=== PATIENT | female | born 1985 | race Caucasian/White ===

== ENCOUNTER → 2019-10-02 13:08 | Outpatient (CLI) | payer OTHER, SELFPAY ==
[2019-10-02 09:03] VITALS: BMI 30.8
[2019-10-02 14:13] LABS: Amphetamine Urine VISTA NEGATIVE (<1000 ng/mL); Barbiturate Urine VISTA NEGATIVE (< 200 ng/mL); Benzodiazepine Urine VISTA NEGATIVE (< 200 ng/mL); Cocaine Urine VISTA NEGATIVE (< 300 ng/mL); Ecstacy Urine VISTA NEGATIVE (< 500 ng/mL); Methadone Urine VISTA NEGATIVE (< 300 ng/mL); PCP Urine VISTA NEGATIVE (< 25 ng/mL); THC Urine VISTA NEGATIVE (< 50 ng/mL); Vista UDS pH Range 6
[2019-10-02 15:46] LABS: Chlamydia Trachomatis by PCR Negative (Negative); Neisserai gonorrhoeae by PCR Negative (Negative); Probe Check PASS; Sample Adequacy Control PASS; Specimen Processing Control PASS
[2019-10-04 03:41] LABS: HPV APTIMA, High Risk Negative (Negative)
== END ==
PROVIDERS: Visit Provider Obstetrics & Gynecology
DX: Z34.90 Encounter for supervision of normal pregnancy, unspecified, unspecified trimester (principal); Z12.4 Encounter for screening for malignant neoplasm of cervix
CPT/HCPCS: 80307; 87086; 87491; 87591; 87624; 88175; G0145

== ENCOUNTER → 2019-11-01 11:11 | Outpatient (CLI) | payer OTHER, SELFPAY ==
[2019-11-01 10:48] VITALS: BMI 30.8
[2019-11-01 11:29] LABS: Absolute Lymphocyte Count 1.51 X10^3/uL (0.83-4.51); Absolute Neutrophil Count 6.2 X10^3/uL (2.0-7.7); Basophil# 0.01 X10^3/uL; Basophil% 0.1 % (0-1); Eosinophil# 0.07 X10^3/uL; Eosinophils% 0.8 % (0-5); Hemoglobin 12.7 g/dL (12.0-15.0); Lymphocyte # 1.51 X10^3/ul (4.0); Lymphocyte % 18.3 % (19-41); Mean Corp Hgb Conc 34.3 g/dL (32-36); Mean Corpuscular Hgb 30.6 pg (27.0-32.0); Mean Corpuscular Volume 89.2 fL (81-99); Mean Platelet Vol. 9.1 fl (6.2-12.0); Monocyte# 0.47 X10^3/uL; Monocyte% 5.7 % (0-10); NRBC Flagged by Analyzer 0 % (0-5); Neutrophil # 6.16 X10^3/uL (2.7-7.7); Neutrophil % 74.7 % (47-70); Platelet Count 180 K/mm3 (150-450); RBC Distribution Width CV 12.5 % (11.6-14.6); RBC Distribution Width SD 40.1 fl (35.1-43.9); Red Blood Count 4.15 M/mm3 (4.2-5.4); White Blood Count 8.3 K/mm3 (4.4-11.0)
[2019-11-01 12:33] LABS: HIV - WCH Non-Reactive (Nonreactive); Hepatitis B Surface Antigen Non-Reactive (Nonreactive); Hepatitis C Antibody Non-Reactive (Nonreactive); Rubella IgG > 500.0 IU/mL
[2019-11-01 13:56] LABS: NATERA MAILED SPECIMEN
[2019-11-07 02:00] LABS: Rapid Plasmin Reagin (RPR) NONREACTIVE (NONREACTIVE)
== END ==
PROVIDERS: Referring Provider Obstetrics & Gynecology; Visit Provider Obstetrics & Gynecology
DX: Z34.81 Encounter for supervision of other normal pregnancy, first trimester (principal)
CPT/HCPCS: 36415; 85025; 86592; 86703; 86762; 86803; 86850; 86900; 86901; 87340

== ENCOUNTER → 2020-02-06 08:58 | Outpatient (CLI) | payer OTHER, SELFPAY ==
[2020-01-24 08:38] VITALS: BMI 30.8
[2020-02-06 09:24] LABS: Absolute Lymphocyte Count 1.16 X10^3/uL (0.83-4.51); Absolute Neutrophil Count 7.4 X10^3/uL (2.0-7.7); Basophil# 0.02 X10^3/uL; Basophil% 0.2 % (0-1); Eosinophil# 0.07 X10^3/uL; Eosinophils% 0.8 % (0-5); Hematocrit 36.5 % (37-47); Hemoglobin 12.1 g/dL (12.0-15.0); Lymphocyte # 1.16 X10^3/ul (4.0); Lymphocyte % 12.6 % (19-41); Mean Corp Hgb Conc 33.2 g/dL (32-36); Mean Corpuscular Hgb 31.1 pg (27.0-32.0); Mean Corpuscular Volume 93.8 fL (81-99); Mean Platelet Vol. 9.9 fl (6.2-12.0); Monocyte# 0.49 X10^3/uL; Monocyte% 5.3 % (0-10); NRBC Flagged by Analyzer 0 % (0-5); Neutrophil # 7.39 X10^3/uL (2.7-7.7); Neutrophil % 80.7 % (47-70); Platelet Count 197 K/mm3 (150-450); RBC Distribution Width CV 12.5 % (11.6-14.6); RBC Distribution Width SD 42.7 fl (35.1-43.9); Red Blood Count 3.89 M/mm3 (4.2-5.4); White Blood Count 9.2 K/mm3 (4.4-11.0)
[2020-02-06 09:28] LABS: Glucose Challenge Gest 1H 50g 137 mg/dL (70-140)
== END ==
PROVIDERS: Referring Provider Obstetrics & Gynecology; Visit Provider Obstetrics & Gynecology
DX: Z34.90 Encounter for supervision of normal pregnancy, unspecified, unspecified trimester (principal); Z13.1 Encounter for screening for diabetes mellitus
CPT/HCPCS: 36415; 82950; 85025

== ENCOUNTER → 2020-02-13 09:54 | Outpatient (CLI) | payer OTHER, SELFPAY ==
[2020-02-06 09:37] VITALS: BMI 31.1
[2020-02-13 11:18] LABS: Glucose GTT-Gestation. Fasting 76 mg/dL (<105)
[2020-02-13 11:57] LABS: Glucose GTT-Gestational 1 Hr 153 mg/dL (<190)
[2020-02-13 13:31] LABS: Glucose GTT-Gestational 2 Hr 157 mg/dL (<165)
[2020-02-13 14:21] LABS: Glucose GTT-Gestational 3 Hr 54 L (<145)
== END ==
PROVIDERS: Referring Provider Obstetrics & Gynecology; Visit Provider Obstetrics & Gynecology
DX: O99.810 Abnormal glucose complicating pregnancy (principal); Z3A.00 Weeks of gestation of pregnancy not specified
CPT/HCPCS: 36415; 82951; 82952

== ENCOUNTER → 2020-04-15 | Outpatient (CLI) | payer OTHER, SELFPAY ==
[2020-04-15 09:10] VITALS: BMI 34.0
== END | disposition home or self-care (01) ==
LOC: LABSPEC 12:16
PROVIDERS: Visit Provider Obstetrics & Gynecology
DX: Z34.90 Encounter for supervision of normal pregnancy, unspecified, unspecified trimester (principal)
CPT/HCPCS: 87081

== ENCOUNTER → 2020-04-28 | Outpatient (CLI) | payer OTHER, SELFPAY ==
[2020-04-15 09:10] VITALS: BMI 34.0
[2020-04-22 13:29] VITALS: BMI 33.9
== END | disposition home or self-care (01) ==
LOC: LABSPEC 10:10
PROVIDERS: Referring Provider Obstetrics & Gynecology; Visit Provider Obstetrics & Gynecology
DX: Z34.90 Encounter for supervision of normal pregnancy, unspecified, unspecified trimester (principal)
CPT/HCPCS: 87635; C9803; U0003

== ENCOUNTER 2020-05-11 04:59 | Inpatient (IN) | payer OTHER, SELFPAY ==
[2020-05-06 11:50] VITALS: BMI 35.2
[2020-05-11] VITALS (53 sets, daily range): BP systolic 101–150; BP diastolic 56–101; PULSE 70–109; RESP 16; TEMP 36.4–37.5; O2SAT 83–100; BMI 34.3
[2020-05-11 05:03] LABS: ROM Internal Control Test YES-OK TO RESULT pt. (Internal QC); ROM Patient Test POSITIVE (Negative)
[2020-05-11] MEDS: Lactated Ringers 1,000 ML 50 ML IV (05:20)
[2020-05-11 05:44] LABS: Absolute Lymphocyte Count 1.67 X10^3/uL (0.83-4.51); Absolute Neutrophil Count 8.9 X10^3/uL (2.0-7.7); Basophil# 0.03 X10^3/uL; Basophil% 0.3 % (0-1); Eosinophil# 0.07 X10^3/uL; Eosinophils% 0.6 % (0-5); Hematocrit 38.8 % (37-47); Hemoglobin 13.3 g/dL (12.0-15.0); Lymphocyte # 1.67 X10^3/ul (4.0); Lymphocyte % 14.5 % (19-41); Mean Corp Hgb Conc 34.3 g/dL (32-36); Mean Corpuscular Hgb 31.7 pg (27.0-32.0); Mean Corpuscular Volume 92.4 fL (81-99); Mean Platelet Vol. 10.1 fl (6.2-12.0); Monocyte# 0.83 X10^3/uL; Monocyte% 7.2 % (0-10); NRBC Flagged by Analyzer 0 % (0-5); Neutrophil # 8.88 X10^3/uL (2.7-7.7); Neutrophil % 77.1 % (47-70); Platelet Count 166 K/mm3 (150-450); RBC Distribution Width CV 13.9 % (11.6-14.6); RBC Distribution Width SD 45.1 fl (35.1-43.9); White Blood Count 11.5 K/mm3 (4.4-11.0)
--- NOTE | 2020-05-11 07:56 | HP.PCM_ITS ---
- Problem List (1) 35 weeks gestation of Status: Acute Comment: electronic covid test ordered 04/01/2020sc (scheduled for 05/06/2020 at 0955) (2) Abnormal glucose affecting Status: Acute Comment: Passed 3h GTT (05/18 abnormal) (3) Lab test negative for COVID-19 virus Status: Acute Comment: Negative 04/28 (4) Status: Acute Qualifiers: Comment: Will get flu shot at work NIPT- low risk female. declines carrier and NTD screening. anatomy shows bilateral choroid plexus cysts, otherwise normal (5) Supervision of normal Status: Acute Comment: PRR LEXUS 05/06/2020 girl Spouse: Fer History and Physical Date of Admission: 05/11/20 Intake Vital Signs 05/06/20 Height 5 ft 10 in 05/06/20 Weight: 245 lb 05/06/20 BP 128/78 H Intake Visit Reasons: 40WK OB Director Of Business Services Required: No Is patient in pain?: No Allergies No Known Allergies Allergy (Verified 05/06/20 11:50) Medications multivitamin no.47-iron fum 27 mg-folate no.1 1 mg-dha 300 mg capsule cap PO 10/02/19 [History Confirmed 05/06/20] Last Menstral Period: 07/31/19 Zika: Zika virus screening: Negative : No PFSH PFSH Medical History No significant past medical history (Acute) Surgical History H/O wisdom tooth extraction (Resolved) History of tonsillectomy (Resolved) Family History Grandmother Diabetes Mother Breast cancer Social History (Updated 05/06/20 @ 12:[address] 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 OB Visit LEXUS Calculator Estimated Delivery Date Method Current WG Current Estimate 05/06/20 LMP (Certain) 40w 0d Expected Delivery Route/Plan Labor Preferences- CB/BF classes: likely not going to be able to due to scheduling conflicts labor support person: Fer labor intervention preferences: open to all interventions pain management options preferred: desires natural labor but open to epidural cut cord/dad catch: cord : yes PP control planned: declines discussed possible routes of delivery and associated risks: discussed possible delivery modalities and possible indications for each including R/B/A of , VAVD, FAVD, and CS. questions answered. special requests: none Specific Issue/Plans flu vaccine: will receive through work tdap vaccine: 02/16 given rhogam: neg LARC form signed:02/16 declined movement and labor precautions reviewed. Problem list reviewed and updated with the most current plan of care details and appropriate orders placed. Relevant counseling for the gestational age provided. Continue routine care and follow up unless otherwise noted in visit notes/problem list details Initial Weight: 215 lb Date EGA Weight BP Urine Prot Glucose FHR FuHt Pres Dilation Effaced St Visit Note 11/01/19 13w 2d 208 lb (-7 lb) 132/88 Negative Negative 160 SM- no vb lof good fm no regular ctx SM- no vb crampingstill nauseated declines meds. desires NIPT screening. 11/29/19 17w 2d 209 lb (-6 lb) 124/88 Negative Negative 150 Sm- no vb cramping classes encouraged 12/26/19 21w 1d 216 lb (+16 oz) 130/80 Negative Negative 145 21 Sm- no vb lof good fm no regular ctx discussed anatomy scan findings. 01/24/20 25w 2d 214 lb 4 oz (-12 oz) 120/82 Negative Negative 150 25 GP - no LOF, VB, DFM. Doing well. Glucola next visit. Will get flu through work. GP - no LOF, VB, DFM. Doing well. Glucola next visit. Will get flu through work. Considering Guardado as name. 02/06/20 27w 1d 217 lb 8 oz (+2 lb 8 oz) 124/82 Negative Negative 145 27 GP - no LOF, VB, DFM, ctx. GTT 137 - plan for 3h. GP - no LOF, VB, DFM, ctx. GTT 137 - plan for 3h. Discussed TDAP - undecided. 02/17/20 28w 5d 221 lb (+6 lb) 110/82 Negative Negative 140 29 SM- no vb lof good fm no regular ctx larc signed 03/05/20 31w 1d 224 lb 6 oz (+9 lb 6 oz) Negative Negative 130 31 GP- no LOF, VB, DFM, ctx. Discussed labor preferences. 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 03/18/20 33w 0d 227 lb 4 oz (+12 lb 4 oz) 118/92 Negative Negative 130 33 GP - no LOF, VB, DFM, ctx. Discussed COVID precautions for work. Discussed routes of delivery. 03/30/20 34w 5d 228 lb 4 oz (+13 lb 4 oz) 120/86 Negative Negative 140 34 GP - no LOF, VB, DFM, ctx. 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 Letter provided. 04/06/20 35w 5d 233 lb (+18 lb) 130/86 Negative Negative 155 35 Cephalic GP - no LOF, VB, DFM, ctx. Confirmed vertex on ultrasound. On voluntary leave now - starting FMLA at 36 weeks. 04/15/20 37w 0d 237 lb 2 oz (+22 lb 2 oz) 122/90 Negative Negative 135 37 Cephalic 0 40 -2 GP - no LOF, VB, DFM, ctx . GBS done today. 04/22/20 38w 0d 236 lb 4 oz (+21 lb 4 oz) 110/84 Negative Negative 155 38 Cephalic 0 40 -2 GP - no LOF, VB, DFM, ctx . GBS negative. 04/29/20 39w 0d 241 lb (+26 lb) 118/79 140 39 Cephalic 0.5 SM- no vb lof good fm no regular ctx 05/06/20 40w 0d 245 lb (+30 lb) 128/78 Negative Negative 130 40 Cephalic 0.5 40 -2 GP - no LOF, VB, DFM, ctx . Discussed IOL at 41 weeks if no labor before then. ACOG First Trimester First Trimester: Desire for , Alcohol, Tobacco Cessation, Illicit/Recreational Drug/Substance Use, Intimate Partner Violence, Barriers to care, Unstable Housing, Communication Barriers, Environmental/Work Hazards, Anticipated Course of Care, Toxoplasmosis Precations, Use of Any medications, Sexual activity, Exercise, Dental Care, Sauna/Hot tub use, Seat Belt use, Childbirth classes/Hospital facilities, , Travel, Indications for US and Screening for Aneuploidy Diagnostics Diagnostics Diagnostics Gest Glucose Tolerance MG/DL 02/13/20 Glucose 1 Hr 50 gm 137 mg/dL (70-140) 02/06/20 Hgb 12.1 g/dL (12.0-15.0) 02/06/20 Hct 36.5 % (37-47) L 02/06/20 Details: HIV: Urine Culture: Sequential Screen: NIPT Screen: ROS Const Reports system reviewed and no additional complaints, except as docu Eyes Reports system reviewed and no additional complaints, except as docu ENT Reports system reviewed and no additional complaints, except as docu Card Reports system reviewed and no additional complaints, except as docu Resp Reports system reviewed and no additional complaints, except as docu GI Reports system reviewed and no additional complaints, except as docu Reports system reviewed and no additional complaints, except as docu, Denies abnormal vaginal bleeding, Denies painful urination, Denies pelvic pain, Denies vaginal discharge, Denies vaginal odor, Denies vaginal itching Musc Reports system reviewed and no additional complaints, except as docu Skin/Breast Reports system reviewed and no additional complaints, except as docu Neuro Yes system reviewed and no additional complaints, except as docu Exam Const General: cooperative, healthy appearing, comfortable, no acute distress, well developed, well groomed Nutritional Appearance: average body habitus, well nourished Orientation: alert, awake, oriented x3 HENMT Head: normal to inspection, normocephalic, atraumatic Eyes Pupils: PERRL, accommodation normal Resp Effort & Inspection: normal respiratory effort, able to speak in complete sentences, symmetric chest movement Cardio Rate: regular rate GI Palpation: soft, no guarding, no masses, nontender Skin General: no rashes or lesions noted, elasticity normal, turgor normal Neuro General: alert, awake, oriented x3 Cranial Nerves: CN's II-XI intact bilaterally, sense of smell intact, PERRL, accommodation normal, EOM intact bilaterally Speech: speech normal Gait: normal gait Psych Appearance: grossly normal, well kempt Mental Status: mental status grossly normal Mood: congruent mood Affect: normal affect Speech and Movement: speech and movement normal Attitude: cooperative Thought Process: normal Thought Content: normal Judgment: judgment good Results POC Urinalysis 2 Dip (Clinic) Office Urine Glucose Negative Last Edit by Brittaney Linda on 05/06/20 11:46 Office Urine Protein Negative Last Edit by Brittaney Linda on 05/06/20 11:46 POC Urinalysis 2 Dip (Clinic) Office Urine Glucose Negative Last Edit by Brittaney Linda on 05/06/20 11:51 Office Urine Protein Negative Last Edit by Brittaney Linda on 05/06/20 11:51 Assessment & Plan Problems 1. Lab test negative for COVID-19 virus Z03.818 Negative 04/28 2. 35 weeks gestation of Z3A.35 electronic covid test ordered 04/01/2020sc (scheduled for 05/06/2020 at 0955) 3. Abnormal glucose affecting O99.810 Passed 3h GTT (1/ abnormal) 4. 40 weeks gestation of Z3A.40 Will get flu shot at work NIPT- low risk female. declines carrier and NTD screening. anatomy shows bilateral choroid plexus cysts, otherwise normal 5. Supervision of normal Z34.90 PRR LEXUS 05/06/2020 girl Spouse: Fer GINO- I have seen the patient and performed any clinically relevant updates to the history and physical exam. Yarely Mercado MD
[2020-05-11] MEDS: Lactated Ringers 1,000 ML 200 ML IV ×2 (10:41→16:30)
[2020-05-11] MEDS: Lactated Ringers 500 ML 999 ML IV (11:55)
[2020-05-11] MEDS: fentaNYL-bupivacaine (epidural) 100 ML BAG EPIDURAL (12:27)
[2020-05-11] MEDS: Oxytocin 30 units/NS 500 ml 30 UNITS/500 ML IV.SOLN IV (15:28)
[2020-05-11] MEDS: Mag Hydrox/Al Hydrox/Simeth 30 ML UDC PO (15:30)
[2020-05-11] MEDS: Oxytocin 30 units/NS 500 ml 30 UNITS/500 ML IV.SOLN 334 UNITS IV (16:46)
--- NOTE | 2020-05-11 17:27 | OP.PCM_ITS ---
Problem List (1) 35 weeks gestation of Status: Acute Comment: electronic covid test ordered 04/01/2020sc (scheduled for 05/06/2020 at 0955) (2) Abnormal glucose affecting Status: Acute Comment: Passed 3h GTT (1/ abnormal) (3) Lab test negative for COVID-19 virus Status: Acute Comment: Negative 04/28 (4) Status: Acute Qualifiers: Comment: Will get flu shot at work NIPT- low risk female. declines carrier and NTD screening. anatomy shows bilateral choroid plexus cysts, otherwise normal (5) Supervision of normal Status: Acute Comment: PRR LEXUS 05/06/2020 girl Spouse: Fer Vaginal Delivery Maternal Presentation: Active Labor 34-year-old G1, P0 at 40 weeks gestation admitted in active labor. Patient made cervical change to complete dilation without augmentation. Amniotic Membrane Rupture Type: Spontaneous at home Final LEXUS: 05/06/20 Gestational age: 40 Weeks and 5 Days Date of Procedure: 05/11/20 Pre-Operative Diagnosis: Term , active labor, prolonged rupture of membranes Post-Operative Diagnosis: Same Surgery/ Procedure Performed: Spontaneous Vaginal Delivery Type of Anesthesia: Epidural Description of Procedure: Patient began pushing and delivered the head in the AMAURI presentation. The head was delivered atraumatically and no nuchal cord was noted. The anterior and posterior shoulders delivered without complication followed by the rest of the and the infant was placed on the maternal abdomen. Delayed cord clamping was employed for approximately 60 seconds. Cord was clamped and cut and gentle traction was applied to the cord and the placenta delivered spontaneously immediately following it was noted to be intact with three-vessel cord. The perineum and vagina were inspected and a midline periclitoral and a midline second-degree perineal laceration were noted and repaired in the standard fashion using 3-0 Vicryl rapide suture. EBL was 300 cc. Patient and t olerated delivery well. Presentation: Vertex, AMAURI Placental Delivery Description: Spontaneous Placenta Disposition: Sent to Pathology Cord Vessel Description: 3 Vessels Cord Entanglement: None Estimated Blood Loss: 300 cc A gender: Female Episiotomy Description: None Laceration: Midline, Periurethral Extnsion/lac - Clitoral, Perineal Extension/lac, 2nd degree Medications given after delivery: IV Pitocin Complications: None Multi Select Codes - Urinary/Genital Urinary/Genital CPT Codes: 51144 Vaginal Delivery [facility]
--- NOTE | 2020-05-11 17:31 | DCINST_ITS ---
Discharge Diet: No Restrictions Discharge Activity: Return to Normal Activity, May not drive while taking narcotic pain medications., May Shower May resume sexual activity in: 4-6 weeks Additional Activity Instructions:: Nothing in the vagina for 4-6 weeks. You may return to work/school in 6 weeks. Call your doctor if your incision/area has: Continuous Slow Oozing, Sudden Increased Bleeding, Increased Pain/ Swelling, Increased Redness, Foul Smelling Discharge Additional Instructions: If you experience any of the following, contact your healthcare provider. * Bleeding that soaks a pad every hour for 2 hours * Fever 100.4 or higher * Unrelieved incision or abdominal pain * Swelling, redness, discharge or bleeding from your incision or episiotomy site * Your incision begins to separate * Problems urinating (including inability to urinate or burning while urinating). * Visual changes * Severe headache * Flu-like symptoms * Pain or redness in one of both of your breasts * Pain, warmth, tenderness or swelling in your legs, especially the calf area * Frequent nausea and vomiting * Symptoms of depression or anxiety If you experience any of the following, call 911 or go to the nearest Emergency Room. * Chest pain * Problems breathing * Seizure activity * Partial or complete paralysis of a body part, slurred speech, weakness or drooping of the face, or a sudden inability to walk or hold your balance Allergies/Adverse Reactions: Allergies No Known Allergies Allergy (Verified 05/11/20 05:12) Medications to take at Discharge Pnv No.95/Ferrous Fum/Folic AC [ Caplet] 1 ea PO DAILY 05/11/20 When: Call to make an appointment with your doctor in 6 weeks. If you had elevated Blood Pressure or 4th degree laceration you will need to be seen in 2 weeks. Primary Care Physician: Care Physician,No Primary [Primary Care Provider] - Test Results: Test results from this visit will be discussed in further detail at your follow- up appointment, if applicable.
--- NOTE | 2020-05-11 17:42 | PLAC_PTH ---
PATIENT: REMY OLMOS LOC: [facility] U#:[id number] AGE/SX: 34/F ROOM: WP006 RE05/11/[address]: Dr. Yarely Mercado MD : 1985 BED: 1 DIS: 05/12/2020 SPEC #: [id number] RECD: 05/12/20 06:43 STATUS: AIRAM REFabio #: [id number] STEFANIE: 05/11/20 17:[address]: Yarely Mercado DEPT: SURGICAL PATHOLOGY RECD BY: Alejandrina Dunlap ENTERED: 05/12/20 07:45 SP TYPE: PLACENTA OTHR DR: No Primary Care Phys Tissues: Placenta, NOS Procedures: Surgery Specimen Level V HEADER OPERATION: Vaginal delivery PRE-OP DIAGNOSIS: Prolonged rupture of membranes TISSUE SUBMITTED: Placenta MICROSCOPIC DIAGNOSIS Guillermo placenta (470 gm): Umbilical cord - trivascular with no evidence of inflammation. Placental membranes - no pathologic change. Placental disc - remote infarct, mild Becky-Johnie change and mildly increased intraparenchymal microcalcifications. AM:carrie 05/14/20 MICROSCOPIC DESCRIPTION Slides are reviewed. GROSS DESCRIPTION SPECIMEN: PLACENTA / CLINICAL INFORMATION: A. Weight: 3.625 kg B. Gestational Age: 40 weeks C. Sex: Female PLACENTAL WEIGHT (POST FIXATION): 470 gm PLACENTAL DIMENSIONS: 19 x 18 x 3 cm PLACENTAL SHAPE: Usual ovoid PLACENTAL WEIGHT FOR GESTATIONAL AGE: Within 10-99th percentile MEMBRANES - Present A. Insertion: Marginal B. Site of rupture from edge: 8 cm from edge of placental disc C. Color of membrane: Jean-islas D. Abnormalities: None UMBILICAL CORD - Present A. Color: Jean-islas B. Insertion: Near central insertion C. Length: 26 cm D. Diameter: 1.2 cm E. Number of vessels: Three F. Abnormalities: None PLACENTAL DISC - Present A. Color of surface: Jean-islas B. surface abnormalities: None C. Maternal cotyledons: Intact with minimal tears D. Attached retro placental clot: No clot E. Cut surface: Dark red and spongy F. Lesions: Jean-white lesion 1 x 0.5 x 0.5 cm G. Separate clot: 8 x 7 x 2 cm SECTIONS SUBMITTED: 1. Umbilical cord ( end notched) 2. Umbilical cord, placental end 3. Membrane roll 4. Placental disc, and maternal surfaces, lesion 5. Placental disc, and maternal surfaces 6. Placental disc, and maternal surfaces AM:carrie 05/13/20 TC:5 CPT: 38473
--- NOTE | 2020-05-11 22:10 | NURSING ---
both mother and FOB CPR certified.
--- NOTE | 2020-05-11 22:18 | NURSING ---
2215- This RN received report form Dee Lopes RN.
[2020-05-11] MEDS: Naproxen 250 MG Tablet 500 MG PO (23:01)
[2020-05-12] MEDS: Dibucaine 30 GM Tube 1 APPLIC TOPICAL (00:15)
[2020-05-12] MEDS: Acetaminophen 500 MG Tablet 1000 MG PO (00:15)
[2020-05-12 00:21] VITALS: BP 126/74; PULSE 89; RESP 16; TEMP 37.1
[2020-05-12 05:25] VITALS: BP 108/62; PULSE 79; RESP 16; TEMP 36.5; O2SAT 97
[2020-05-12 06:47] LABS: Pathology Specimen OB SEE PATHOLOGY REPORT
--- NOTE | 2020-05-12 08:13 | PCM.PN.OB ---
Patient Problems: Active and Suspected Problems (Last Reviewed 05/06/20 @ 11:50 by Brittaney Linda) Lab test negative for COVID-19 virus (Acute) Negative 04/28 35 weeks gestation of (Acute) electronic covid test ordered 04/01/2020sc (scheduled for 05/06/2020 at 0955) Abnormal glucose affecting (Acute) Passed 3h GTT (/ abnormal) (Acute) Will get flu shot at work NIPT- low risk female. declines carrier and NTD screening. anatomy shows bilateral choroid plexus cysts, otherwise normal Supervision of normal (Acute) PRR LEXUS 05/06/2020 girl Spouse: Fer Subjective: Patient doing well without complaints. Tolerating PO. Ambulating and voiding without difficulty. Breast feeding well. Denies chest pain, shortness of breath, calf pain/swelling, fevers, chills, lightheadedness. - Physical Exam Vitals/I&O's: Vital Signs Temp Pulse Resp BP Pulse Ox 97.7 F L 79 16 108/62 97 05/12/20 05:25 05/12/20 05:25 05/12/20 05:25 05/12/20 05:25 05/12/20 05:25 Oxygen Delivery Method Room Air Weight: 239 lb 6.752 oz Body Mass Index (BMI) 34.3 Intake and Output for Last 24 Hours 05/10/20 05/11/20 05/12/20 23:59 23:59 23:59 Intake Total 2359.03 / 2359.03 Output Total 800 / 1800 1400 / 1400 Balance 1559.03 / 559.03 -1400 / -1400 General: Alert, Oriented x3, Cooperative Abdomen: Soft, Non Tender, Non-Distended, - - FF below U Microbiology Past 72 Hours 05/11/20 05:34 Interface Orders SARS-CoV-2 Antigen (Rapid) - Final Current Medications Acetaminophen (Acetaminophen 500 Mg Tablet) 1,000 mg PO Q8H PRN PRN PRN Reason: Pain Score 1-3 Last Admin: 05/12/20 00:15 Dose: 1,000 mg Documented by: Bisacodyl (Bisacodyl 10 Mg Suppository) 10 mg RECTAL UD PRN PRN Reason: If no BM Dibucaine (Dibucaine 30 Gm Tube) 1 applic TOPICAL TID PRN PRN; Protocol PRN Reason: Discomfort Last Admin: 05/12/20 00:15 Dose: 1 tube Documented by: Hydrocortisone (Hydrocortisone 2.5% Crm) 1 applic TOPICAL TID PRN PRN; Protocol PRN Reason: Discomfort Methylergonovine Maleate (Methylergonovine 0.2 Mg/Ml Ampul) 0.2 mg IM X1 PRN PRN Reason: Excess bleeding/uterine atony Naproxen (Naproxen 250 Mg Tablet) 500 mg PO Q8H PRN PRN PRN Reason: Pain Score 1-3 Last Admin: 05/11/20 23:01 Dose: 500 mg Documented by: Ondansetron HCl (Ondansetron 4 Mg/2 Ml Vial) 4 mg IV Q4H PRN PRN PRN Reason: Nausea Oxycodone HCl (Oxycodone 5 Mg Tablet) 5 - 10 mg PO Q4H PRN PRN PRN Reason: Pain Score 4-10 Senna/Docusate Sodium (Senna/Docusate Sodium 1 Tablet) 1 - 2 tablet PO DAILY PRN PRN PRN Reason: Constipation Simethicone (Simethicone 80 Mg Tablet) 80 mg PO PCHS PRN PRN Reason: Indigestion/Stomach pain Sodium Chloride (0.9% Saline Lock 10 Ml Syringe) 5 - 15 ml IV UD PRN PRN Reason: SALINE FLUSH Medical Necessity - Tobacco Use Smoking Status: Former smoker Assessment/Plan All Active Problems (Last Reviewed 05/06/20 @ 11:50 by Brittaney Linda) Lab test negative for COVID-19 virus (Acute) 35 weeks gestation of (Acute) Abnormal glucose affecting (Acute) (Acute) Supervision of normal (Acute) s/p PPD # 1 1. routine post delivery care 2. breast feeding- support given 3. rh positive 4. rubella immune 5. Plans home today if stable for DC
[2020-05-12 09:00] VITALS: BP 135/89; PULSE 78; RESP 16; TEMP 36.8
[2020-05-12 13:00] VITALS: BP 120/79; PULSE 76; RESP 20; TEMP 36.4
== END 2020-05-12 18:30 | disposition home or self-care (01) | DRG 807 ==
LOC: WPOUT 04:59 → WP 04:59
PROVIDERS: Admitting Provider Obstetrics & Gynecology; Visit Provider Obstetrics & Gynecology
DX: O42.92 Full-term premature rupture of membranes, unspecified as to length of time between rupture and onset of labor (principal); Z37.0 Single live birth; O99.814 Abnormal glucose complicating childbirth; O70.1 Second degree perineal laceration during delivery; O71.82 Other specified trauma to perineum and vulva; Z3A.40 40 weeks gestation of pregnancy; Z87.891 Personal history of nicotine dependence
CPT/HCPCS: 59025; 59050; 84112; 85025; 86850; 86900; 86901; 87426; 88307; 99218; J7120; G0378

== ENCOUNTER 2021-07-29 16:08 | Outpatient (CLI) | payer OTHER, SELFPAY ==
[2021-07-29 17:17] LABS: Amphetamine Urine VISTA NEGATIVE (<1000 ng/mL); Barbiturate Urine VISTA NEGATIVE (< 200 ng/mL); Benzodiazepine Urine VISTA NEGATIVE (< 200 ng/mL); Cocaine Urine VISTA NEGATIVE (< 300 ng/mL); Ecstacy Urine VISTA NEGATIVE (< 500 ng/mL); Methadone Urine VISTA NEGATIVE (< 300 ng/mL); PCP Urine VISTA NEGATIVE (< 25 ng/mL); THC Urine VISTA NEGATIVE (< 50 ng/mL); Vista UDS pH Range 6
[2021-08-02 05:07] LABS: Chlamydia By Nucleic Acid AMP Negative (Negative)
[2021-08-02 13:31] LABS: Gonococcus By Nucleic Acid AMP Negative (Negative)
== END 2021-07-29 23:59 | disposition home or self-care (01) ==
LOC: LABSPEC 16:09
PROVIDERS: Referring Provider Obstetrics & Gynecology; Visit Provider Obstetrics & Gynecology
DX: Z34.80 Encounter for supervision of other normal pregnancy, unspecified trimester (principal)
CPT/HCPCS: 80307; 87086; 87088; 87491; 87591

== ENCOUNTER 2021-08-03 14:44 | Outpatient (CLI) | payer OTHER, SELFPAY ==
[2021-08-03 15:07] LABS: Absolute Lymphocyte Count 1.19 X10^3/uL (0.83-4.51); Absolute Neutrophil Count 5.2 X10^3/uL (2.0-7.7); Basophil# 0.03 X10^3/uL; Basophil% 0.4 % (0-1); Eosinophil# 0.13 X10^3/uL; Eosinophils% 1.9 % (0-5); Hematocrit 38.6 % (37-47); Hemoglobin 12.8 g/dL (12.0-15.0); Lymphocyte # 1.19 X10^3/ul (0.83-4.51); Mean Corp Hgb Conc 33.2 g/dL (32-36); Mean Corpuscular Hgb 27.9 pg (27.0-32.0); Mean Corpuscular Volume 84.1 fL (81-99); Mean Platelet Vol. 9.2 fl (6.2-12.0); Monocyte# 0.43 X10^3/uL; Monocyte% 6.1 % (0-10); NRBC Flagged by Analyzer 0 % (0-5); Neutrophil # 5.22 X10^3/uL (2.7-7.7); Neutrophil % 74.5 % (47-70); Platelet Count 181 K/mm3 (150-450); RBC Distribution Width CV 13.8 % (11.6-14.6); RBC Distribution Width SD 42.4 fl (35.1-43.9); Red Blood Count 4.59 M/mm3 (4.2-5.4)
[2021-08-03 15:22] LABS: Glucose Challenge Gest 1H 50g 77 mg/dL (70-140)
[2021-08-03 15:50] LABS: NATERA MAILED SPECIMEN
[2021-08-03 16:20] LABS: HIV - WCH Non-Reactive (Nonreactive); Hepatitis B Surface Antigen Non-Reactive (Nonreactive); Hepatitis C Antibody Non-Reactive (Nonreactive); Rubella IgG Reactive (Nonreactive); Syphilis Antibodies Non-reactive
== END 2021-08-03 23:59 | disposition home or self-care (01) ==
LOC: PAVLAB 14:46
PROVIDERS: Referring Provider Obstetrics & Gynecology; Visit Provider Obstetrics & Gynecology
DX: O09.521 Supervision of elderly multigravida, first trimester (principal); Z3A.00 Weeks of gestation of pregnancy not specified
CPT/HCPCS: 36415; 82950; 85025; 86703; 86762; 86780; 86803; 86850; 86900; 86901; 87340

== ENCOUNTER → 2021-11-18 | Outpatient (CLI) | payer OTHER, SELFPAY ==
[2021-11-18 16:02] LABS: Absolute Lymphocyte Count 1.39 X10^3/uL (0.83-4.51); Absolute Neutrophil Count 5.7 X10^3/uL (2.0-7.7); Basophil# 0.02 X10^3/uL; Basophil% 0.3 % (0-1); Eosinophil# 0.11 X10^3/uL; Eosinophils% 1.4 % (0-5); Hematocrit 34.7 % (37-47); Hemoglobin 11.4 g/dL (12.0-15.0); Lymphocyte # 1.39 X10^3/ul (0.83-4.51); Mean Corp Hgb Conc 32.9 g/dL (32-36); Mean Corpuscular Hgb 29.3 pg (27.0-32.0); Mean Corpuscular Volume 89.2 fL (81-99); Mean Platelet Vol. 10.2 fl (6.2-12.0); Monocyte# 0.47 X10^3/uL; Monocyte% 6.1 % (0-10); NRBC Flagged by Analyzer 0 % (0-5); Neutrophil # 5.71 X10^3/uL (2.7-7.7); Neutrophil % 73.7 % (47-70); Platelet Count 167 K/mm3 (150-450); RBC Distribution Width CV 13.4 % (11.6-14.6); RBC Distribution Width SD 43.7 fl (35.1-43.9); Red Blood Count 3.89 M/mm3 (4.2-5.4); White Blood Count 7.7 K/mm3 (4.4-11.0)
[2021-11-18 16:16] LABS: Glucose Challenge Gest 1H 50g 119 mg/dL (70-140)
== END | disposition home or self-care (01) ==
LOC: PAVLAB 14:32 → LAB 14:35
PROVIDERS: Referring Provider Obstetrics & Gynecology; Visit Provider Obstetrics & Gynecology
DX: Z34.80 Encounter for supervision of other normal pregnancy, unspecified trimester (principal)
CPT/HCPCS: 36415; 82950; 85025

== ENCOUNTER → 2022-01-28 | Outpatient (CLI) | payer OTHER, SELFPAY | END | disposition home or self-care (01) | PROVIDERS: Visit Provider Obstetrics & Gynecology | DX: Z34.90 Encounter for supervision of normal pregnancy, unspecified, unspecified trimester (principal) | CPT/HCPCS: 87081 ==

== ENCOUNTER 2022-02-28 07:42 | Inpatient (IN) | payer OTHER, SELFPAY ==
[2022-02-27 20:04] VITALS: BP 137/91; PULSE 82; PULSE 87; TEMP 37.1; O2SAT 98
[2022-02-27 20:08] VITALS: PULSE 87; O2SAT 98
[2022-02-27 20:11] VITALS: BP 136/85; PULSE 86
[2022-02-27 20:24] VITALS: BP 132/75; PULSE 83
[2022-02-28] VITALS (21 sets, daily range): BP systolic 117–154; BP diastolic 70–91; PULSE 72–165; RESP 16–18; TEMP 36.2–36.8; O2SAT 79–100; BMI 37.0
--- NOTE | 2022-02-28 06:56 | OB.TRI.PN ---
Progress Notes Progress Note: Patient presents for triage evaluation secondary to postdates FHT: 130 Moderate variability reactive no decelerations category I tracing [place]: no reg Contractions Assessment and plan: post dates commercial credit specialist term Reactive NST, reassuring maternal and status patient discharged to home to follow-up tomorrow for IOL. See problem list details for additional plan information. Charges/Coding Procedures Urinary/Genital 52xxx-59xxx: 70448-19 non-stress test Interp
[2022-02-28] MEDS: Lactated Ringers 1,000 ML 50 ML IV (08:28)
[2022-02-28] MEDS: Oxytocin 15 Units/NS 250ml 15 UNITS/250 ML IV.SOLN 2 UNITS IV (08:28)
[2022-02-28 08:33] LABS: Absolute Lymphocyte Count 1.91 X10^3/uL (0.83-4.51); Absolute Neutrophil Count 5.5 X10^3/uL (2.0-7.7); Basophil# 0.03 X10^3/uL; Basophil% 0.4 % (0-1); Eosinophil# 0.09 X10^3/uL; Eosinophils% 1.1 % (0-5); Hematocrit 38.2 % (37-47); Hemoglobin 12.7 g/dL (12.0-15.0); Lymphocyte # 1.91 X10^3/ul (0.83-4.51); Lymphocyte % 23.5 % (19-41); Mean Corp Hgb Conc 33.2 g/dL (32-36); Mean Corpuscular Hgb 29.6 pg (27.0-32.0); Mean Platelet Vol. 10.5 fl (6.2-12.0); Monocyte# 0.56 X10^3/uL; Monocyte% 6.9 % (0-10); NRBC Flagged by Analyzer 0 % (0-5); Neutrophil # 5.51 X10^3/uL (2.7-7.7); Neutrophil % 67.9 % (47-70); Platelet Count 185 K/mm3 (150-450); RBC Distribution Width CV 13.9 % (11.6-14.6); Red Blood Count 4.29 M/mm3 (4.2-5.4); White Blood Count 8.1 K/mm3 (4.4-11.0)
--- NOTE | 2022-02-28 08:55 | HP.PCM.OB_ITS ---
HPI - General General Date of Admission: 02/28/22 HPI Narrative REMY OLMOS, is a 36 F who presents to L&D for postdates IOL. +FM, denies vb,lof. occ contractions overnight slightly more intense. Maternal Data Information LEXUS Calculator Estimated Delivery Date Method Current WG Current Estimate 02/19/22 LMP (Certain) 41w 2d Other Estimates 02/15/22 Ultrasound #1 41w 6d Final LEXUS: 02/19/22 Final LEXUS Source: LMP PFSH PFSH Medical History (Updated 02/28/22 @ 09:05 by Cee Leary CNM) No significant past medical history Home Medications vit no.95-ferrous fumarate 28 mg-folic acid 800 mcg tablet 1 ea PO DAILY 05/11/20 [History Last Taken 02/27/22 22:00] Allergy/AdvReac Type Severity Reaction Status Date / Time No Known Allergies Allergy Verified 02/17/22 14:34 Family History Grandmother Diabetes Mother Breast cancer Father Cancer Lung Surgical History H/O wisdom tooth extraction History of tonsillectomy Social History adopted: No household members: spouse and children housing: house number of children: 1 current occupational status: employed 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 Date Name GA/Weeks Outcome Route Bth Weight Infant Gen Labor Lgth Anesthesia Del Locatn Provider FOB Unknown 05/11/20 Guardado 40 live - full term 8lbs Female [facility] Rogelio Delivery Date: Last Updated by: Zainab Hooker MUSIC CATALOGUER, MUSIC CATALOGUER-C 2 degree Delivery Date: 05/11/20 Last Updated by: Brittaney Linda Admitted in active labor Visit Details Expected Delivery Route/Plan Labor Preferences- CB/BF classes: no labor support person: Fer labor intervention preferences: minimal intervention pain management options preferred: ok if epidural needed, goal to go unmedicated. cut cord/dad catch: cord : yes PP control planned: discussed discussed possible routes of delivery and associated risks: [] special requests: [] Plans Covid status: discussed Flu vaccine: discussed Tdap vaccine: given Rhogam: na LARC form signed: yes Problem list reviewed and updated with the most current plan of care details and appropriate orders placed. Relevant counseling for the gestational age provided. Continue routine care and follow up unless otherwise noted in visit notes/problem list details OB Flowsheet Initial Weight: Not Recorded Date -?-?-?-?-?-?-?-?-?-?-?-?- EGA Weight BP Urine Prot -?-?-?-?-?-?-?-?-?-?-?-?- Glucose FHR FuHt Pres Dilation -?-?-?-?-?-?-?-?-?-?-?-?- Effaced St Visit Note 07/29/21 -?-?-?-?-?-?-?-?-?-?-?-?- 10w 5d 244 lb 6 oz 120/86 -?-?-?-?-?-?-?-?-?-?-?-?- 166 -?-?-?-?-?-?-?-?-?-?-?-?- JV- CRL consiste nt with LMP within 4 days. 08/27/21 -?-?-?-?-?-?-?-?-?-?-?-?- 14w 6d 244 lb 4 oz 120/80 Nega tive -?-?-?-?-?-?-?-?-?-?-?-?- Negative 160 -?-?-?-?-?-?-?-?-?-?-?-?- SM- no vb crampi ng 09/23/21 -?-?-?-?-?-?-?-?-?-?-?-?- 18w 5d 243 lb 126/70 Negative -?-?-?-?-?-?-?-?-?-?-?-?- Negative 156 -?-?-?-?-?-?-?-?-?-?-?-?- -No VB, LOF. S ome flutters. Anatomy US MFM tomorrow 10/21/21 -?-?-?-?-?-?-?-?-?-?-?-?- 22w 5d 245 lb 8 oz 106/76 Nega tive -?-?-?-?-?-?-?-?-?-?-?-?- Negative 150 -?-?-?-?-?-?-?-?-?-?-?-?- JV- no lof, vagi nal bleeding, or cramping . 28 week labs ordered 11/19/21 -?-?-?-?-?-?-?-?-?-?-?-?- 26w 6d 249 lb 116/78 -?-?-?-?-?-?-?-?-?-?-?-?- 140 28 -?-?-?-?-?-?-?-?-?-?-?-?- - no vb lof go od fm no regular ctx 12/06/21 -?-?-?-?-?-?-?-?-?-?-?-?- 29w 2d 250 lb 110/70 Negative -?-?-?-?-?-?-?-?-?-?-?-?- Negative 149 30 -?-?-?-?-?-?-?-?-?-?-?-?- -No VB, LOF. G ood FM. 12/21/21 -?-?-?-?-?-?-?-?-?-?-?-?- 31w 3d 250 lb 8 oz 108/70 Nega tive -?-?-?-?-?-?-?-?-?-?-?-?- Negative 144 32 -?-?-?-?-?-?-?-?-?-?-?-?- -No vB, LOF. G ood FM. Denies concerns 01/28/22 -?-?-?-?-?-?-?-?-?-?-?-?- 36w 6d 255 lb 133/85 Negative -?-?-?-?-?-?-?-?-?-?-?-?- Negative 140 37 -?-?-?-?-?-?-?-?-?-?-?-?- JV- no lof, vagi nal bleeding, or dec fm. declines vag exam, GBS collected. 02/02/22 -?-?-?-?-?-?-?-?-?-?-?-?- 37w 4d 257 lb 8 oz 120/80 Nega tive -?-?-?-?-?-?-?-?-?-?-?-?- Negative 137 38 Cephalic -?-?-?-?--?-?-?-?-?-?-?-?- LC- no lof, vb, ctx. active FM. discussed at home labor techniques reviewed. 02/10/22 -?-?-?-?-?-?-?-?-?-?-?-?- 38w 5d 260 lb 4 oz 132/88 Nega tive -?-?-?-?-?-?-?-?-?-?-?-?- Negative 160 38 Cephalic -?-?-?-?-?-?-?-?-?-?-?-?- JV- pt declines exam, no lof ,vaginal bleeding, or dec fm. 02/17/22 -?-?-?-?-?-?-?-?-?-?-?-?- 39w 5d 258 lb 6 oz 135/87 -?-?-?-?-?-?-?-?-?-?-?-?- 155 39 Cephalic 0 -?-?-?-?-?-?-?-?-?-?-?-?- 40 -2 JV- pt is ready to schedule 41 wee induction. No complaints today. 02/22/22 -?-?-?-?-?-?-?-?-?-?-?-?- 40w 3d 258 lb 114/80 Negative -?-?-?-?-?-?-?-?-?-?-?-?- Negative 140 40 Cephalic 3 -?-?-?-?-?-?-?-?-?-?-?-?- 60 -2 SM- no vb lof good fm no regular ctx 02/28/22 -?-?-?-?-?-?-?-?-?-?-?-?- 41w 2d 258 lb 137/91 136/85 132/75 134/87 -?-?-?-?-?-?-?-?-?-?-?-?- -?-?-?-?-?-?-?-?-?-?-?-?- NST FHR Rate Baby A Baseline: 130 Variability:: Moderate Accelerations:: 15 x 15 Decelerations:: None NST Reactive:: Yes FHR Category:: Category I Uterine Activity:: q3-5 minutes ROS Cardiovascular Cardiovascular: Denies abdominal pain, chest pain, diaphoresis, dyspnea, edema or fatigue Respiratory/Chest Respiratory/Chest: Denies change in mental status, chest congestion, chest tightness, cough, shortness of breath at rest, shortness of breath with exertion, breast mass, breast pain, breast skin changes, breast swelling, change in breast shape or nipple discharge Gastrointestinal Gastrointestinal: Denies diarrhea, hemorrhoids, nausea, vomiting or weight changes Genitourinary Genitourinary: Denies abdominal discomfort, burning urination, change in libido, change in urinary stream, contractions, difficulty urinating, dysuria, movement, low back pain, urinary frequency, urinary hesitancy, urinary incontinence or urinary urgency Musculoskeletal Musculoskeletal: Reports none Integumentary Integumentary: Reports none Neurologic Neurologic: Reports none Psychiatric Psychiatric: Reports none Endocrine Endocrinology: Reports none Hematologic/Lymphatic Hematologic/Lymphatic: Reports none Allergic/Immunologic Allergic/Immunologic: Reports none Vital Signs Vital Signs Vital Signs: 02/27/22 20:04 02/27/22 20:04 02/27/22 20:04 Temperature 98.8 F Temperature Source Pulse Rate 82 Blood Pressure 137/91 H BP Systolic 137 BP Diastolic 91 Pulse Ox 02/27/22 20:08 02/27/22 20:08 02/27/22 20:11 Temperature Temperature Source Pulse Rate 87 Blood Pressure 136/85 H BP Systolic 136 BP Diastolic 85 Pulse Ox 98 02/27/22 20:11 02/27/22 20:04 02/27/22 20:04 Temperature Temperature Source Temporal Pulse Rate 86 87 Blood Pressure BP Systolic BP Diastolic Pulse Ox 02/27/22 20:04 02/27/22 20:24 02/27/22 20:24 Temperature Temperature Source Pulse Rate 83 Blood Pressure 132/75 H BP Systolic 132 BP Diastolic 75 Pulse Ox 98 02/28/22 08:18 02/28/22 08:18 02/28/22 08:18 Temperature 98.2 F Temperature Source Pulse Rate 86 Blood Pressure 134/87 H BP Systolic 134 BP Diastolic 87 Pulse Ox 02/28/22 08:18 02/28/22 08:18 02/28/22 08:21 Temperature Temperature Source Pulse Rate 165 H 89 Blood Pressure BP Systolic BP Diastolic Pulse Ox 79 02/28/22 08:21 Temperature Temperature Source Pulse Rate Blood Pressure BP Systolic BP Diastolic Pulse Ox 98 Weight Weight: 258 lb Body Mass Index (BMI) 37.0 Physical Exam Const alert, oriented x3 and no apparent distress General Appearance: cooperative, comfortable and well kempt; Negative for in distress Orientation / Consciousness: awake and oriented to person Exam Limitations: no limitations HEENT normocephalic Mouth: oral and palatal mucosa normal Neck full ROM and thyroid normal Chest inspection of chest normal Resp normal respiratory effort Effort and Inspection: able to speak in complete sentences and symmetric chest movement Cardio regular rate Peripheral Pulses: pulses 2+ throughout GI normal to inspection, nondistended, normoactive bowel sounds Inspection: gravid no CVA tenderness and appearance of the vagina normal External Female Exam: normal appearance of the urethra; Negative for external lesion OB / External & Speculum: external exam normal Manual OB Exam: estimated gestational size appropriate, presentation cephalic, dilated 3, effaced 90 and station -3 Uterus Palpation: Negative for uterus tender Extremity normal to inspection Skin no rashes or lesions noted Neuro deep tendon reflexes 2+ bilaterally and gait normal Motor Exam: strength 5/5 throughout and clonus absent Psych Activity / Motor Behavior: appropriate eye contact Speech: normal speech Labs Labs Labs: Blood Type A POSITIVE Antibody Screen NEGATIVE Hct 38.2 % (37-47) Hgb 12.7 g/dL (12.0-15.0) Pap Smear Negative Syphilis Total Ab Non-reactive Rubella IgG Antibody Reactive (Nonreactive) Hep Bs Antigen Non-Reactive (Nonreactive) Chlamydia DNA (PHOEBE) Negative (Negative) Neisseria gonorrhoeae DNA (PHOEBE) Negative (Negative) HIV 1&2 Antibody Non-Reactive (Nonreactive) Glucose 1 Hr 50 gm 119 mg/dL (70-140) Rhogam given: No Assessment & Plan (1) Obesity affecting : COMMENT: nl 1 TM GCT. encouraged healthy weight gain. (2) : QUALIFIERS: Weeks of gestation: 40 weeks Qualified Code(s): Z3A.40 - 40 weeks gestation of COMMENT: Gbs neg. carrier ntd declined. NIPT low risk nl anatomy (3) Supervision of other normal : COMMENT: PRR LEXUS:02/19/22, boy, PC: Guardado; Spouse:Fer (4) Encounter for induction of labor: COMMENT: IOL with pitocin PLAN: Plan pt is a at 41+2 here for postdates IOL -reactive NST -cephalic presentation by mary admit to L&D -after reviewing risk and benefits, to start pitocin IOL -standard orders -GBS negative -rubella immune
--- NOTE | 2022-02-28 12:35 | PCM.PN.OB ---
Subjective Subjective Patient is breathing through contractions on ball upon entering the room. States coping well with contractions. Objective Data Objective Data Vital Signs: Vital Signs Temp Pulse BP Pulse Ox 97.2 F L 83 133/85 H 100 02/28/22 12:32 02/28/22 12:33 02/28/22 12:33 02/28/22 12:32 Weight: 258 lb Body Mass Index (BMI) 37.0 Intake & Output: Intake and Output for Last 24 Hours 02/26/22 02/27/22 02/28/22 23:59 23:59 23:59 Intake Total .97 / .97 Balance . / . Lab / Micro Data Attestation: I reviewed the patient's lab results. Result Diagrams: 02/28/22 08:10 Labs: Laboratory Results - last 24 hr 02/28/22 08:10: WBC 8.1, RBC 4.29, Hgb 12.7, Hct 38.2, MCV 89.0, MCH 29.6, MCHC 33.2, RDW Std Deviation 45.0 H, RDW Coeff of Lang 13.9, Plt Count 185, MPV 10.5, Immature Gran % (Auto) 0.200, Neut % (Auto) 67.9, Lymph % (Auto) 23.5, [place] % (Auto) 6.9, Eos % (Auto) 1.1, Baso % (Auto) 0.4, Absolute Neuts (auto) 5.5, Absolute Lymphs (auto) 1.91, Nucleated RBC % 0 02/28/22 08:10: Blood Type A POSITIVE, Antibody Screen NEGATIVE Micro: Microbiology 02/28/22 08:20 Nasal Secretion SARS-CoV-2 Antigen (Rapid) - Final NST FHR Rate Baby A Baseline: 135 Variability:: Moderate Accelerations:: 15 x 15 Decelerations:: None and Early NST Reactive:: Yes FHR Category:: Category I Assessment & Plan (1) Encounter for induction of labor: COMMENT: IOL with pitocin (2) Obesity affecting : COMMENT: nl 1 TM GCT. encouraged healthy weight gain. (3) : QUALIFIERS: Weeks of gestation: 40 weeks Qualified Code(s): Z3A.40 - 40 weeks gestation of COMMENT: Gbs neg. carrier ntd declined. NIPT low risk nl anatomy (4) Supervision of other normal : COMMENT: PRR LEXUS:02/19/22, boy, PC: Guardado; Spouse:Fer PLAN: Plan Patient is a 36-year-old G2, P1 at 41+2 induction of labor with Pitocin, active labor. SROM- clear fluid Continue comfort techniques Anticipate .
[2022-02-28] MEDS: Oxytocin 15 Units/NS 250ml 15 UNITS/250 ML IV.SOLN 83 UNITS IV (15:15)
--- NOTE | 2022-02-28 15:55 | OP.PCM_ITS ---
Assessment & Plan (1) : QUALIFIERS: Weeks of gestation: 40 weeks Qualified Code(s): Z3A.40 - 40 weeks gestation of COMMENT: Gbs neg. carrier ntd declined. NIPT low risk nl anatomy (2) Supervision of other normal : COMMENT: PRR LEXUS:02/19/22, boy, PC: Guardado; Spouse:Fer (3) (spontaneous vaginal delivery): COMMENT: 41+2, IOL with pitocin. LC 02/28. boy Maternal Data Information LEXUS Calculator Estimated Delivery Date Method Current WG Current Estimate 02/19/22 LMP (Certain) 41w 2d Other Estimates 02/15/22 Ultrasound #1 41w 6d Final LEXUS Source: LMP Gestational age: 41+2 Vaginal Delivery Maternal Presentation Maternal Presentation: Medically Indicated Induction Type of Induction: Pitocin Operative Information Date of Procedure: 02/28/22 Pre-Operative Diagnosis: labor Post-Operative Diagnosis: Surgery / Procedure Performed: Spontaneous Vaginal Delivery Type of Anesthesia: Local with 2% Lidocaine Estimated Blood Loss: 150 Time of Delivery: 13:31 Findings Description of Procedure: Patient began pushing and delivered the head in the [AMAURI] presentation. The head was delivered atraumatically The anterior and posterior shoulders delivered without complication followed by the rest of the infant and the was placed on the maternal abdomen. Delayed cord clamping was employed for approximately 3minutes. Cord was clamped and cut and gentle traction was applied to the cord and the placenta delivered spontaneously immediately following it was noted to be intact with three-vessel cord. The perineum and vagina were inspected and noted to have 1st degree laceration, repaired in usual fashion.. EBL was 150. Patient and tolerated delivery well.entered recovery in stable condition bonding skin to skin. Presentation: Vertex and AMAURI Amniotic Membrane Rupture Type: Artificial Time of Membrane Rupture: 1230 Amniotic Fluid Description: Clear Placental Delivery Description: Spontaneous Placenta Disposition: [facility] Cord Vessel Description: 3 Vessels Cord Entanglement: None Nuchal Cord Compression: Without compression Infant A Gender: Male (1 minute): 9 (5 minute): 9 Delayed Cord Clamping: Yes Post Vaginal Delivery Medications Given After Delivery: IV Pitocin Episiotomy Description: 1st degree Laceration: Midline Complication Complications: None Admit VTE Documentation VTE Present on Admission: No Multi Select Codes Addendum Addendum: attention billing CNM delivery [facility]
--- NOTE | 2022-02-28 16:15 | DCINST_ITS ---
Discharge Instructions Diet Discharge Diet: No restrictions Activity Discharge Activity: Return to Normal Activity, May Shower and May Take a Tub Bath (after 2 weeks) May resume sexual activity in: 4-6 weeks (after provider visit ) Weight Bearing Status: Full weight bearing Dressing / Incision Call your doctor if your incision/area has: Sudden Increased Bleeding and Increased Pain/ Swelling Call your doctor if you observe: Fever of 101 or Higher, Coldness, Increased Pain, Change in Color, Inability to urinate, Using more than 1 pad per hour, Shortness of breath, Fainting spells, Chest pain, Calf discomfort and Uncontrolled pain Follow Up Care Please Follow Up With: Cee Leary CNM When: 6weeks Test Results: Test results from this visit will be discussed in further detail at your follow- up appointment, if applicable. Discharge Plan Admission Admit Date/Time: 02/28/22 07:42 Primary Reason for Your Visit: IOL Attending Provider: Cee Leary Primary Care Provider: Care Physician,[place] Primary Discharge Orders/Prescriptions Prescriptions: No Action PNV cmb#95-ferrous fumarate-FA 1 EACH tablet 1 ea PO DAILY Referrals / Follow Up: Care Physician,No Primary [Primary Care Provider] - Disposition Disposition (needs filled in before D/C Order can be placed): Home, Self Care
[2022-03-01] VITALS (9 sets, daily range): BP systolic 123–142; BP diastolic 71–84; PULSE 80–94; RESP 16; TEMP 36.1–36.7; O2SAT 96–99
== END 2022-03-01 16:20 | disposition home or self-care (01) | DRG 807 ==
PROVIDERS: Obstetrics & Gynecology; Admitting Provider Obstetrics & Gynecology; Visit Provider Obstetrics & Gynecology
DX: O48.0 Post-term pregnancy (principal); Z37.0 Single live birth; O42.02 Full-term premature rupture of membranes, onset of labor within 24 hours of rupture; O99.214 Obesity complicating childbirth; O70.0 First degree perineal laceration during delivery; Z3A.41 41 weeks gestation of pregnancy; Z87.891 Personal history of nicotine dependence
CPT/HCPCS: 59025; 59050; 85025; 86850; 86900; 86901; 87426; 99218; J7120; G0378

== ENCOUNTER → 2023-10-17 | Outpatient (CLI) | payer OTHER, SELFPAY ==
[2023-10-17 10:18] LABS: Absolute Lymphocyte Count 1.55 X10^3/uL (0.83-4.51); Absolute Neutrophil Count 5.6 X10^3/uL (2.0-7.7); Basophil# 0.03 X10^3/uL; Basophil% 0.4 % (0-1); Eosinophil# 0.13 X10^3/uL; Eosinophils% 1.7 % (0-5); Hemoglobin 12.1 g/dL (12.0-15.0); Lymphocyte # 1.55 X10^3/ul (0.83-4.51); Lymphocyte % 20.2 % (19-41); Mean Corp Hgb Conc 32.7 g/dL (32-36); Mean Corpuscular Hgb 27.4 pg (27.0-32.0); Mean Corpuscular Volume 83.9 fL (81-99); Monocyte# 0.37 X10^3/uL; Monocyte% 4.8 % (0-10); NRBC Flagged by Analyzer 0 % (0-5); Neutrophil # 5.57 X10^3/uL (2.7-7.7); Neutrophil % 72.6 % (47-70); Platelet Count 165 K/mm3 (150-450); RBC Distribution Width CV 14.1 % (11.6-14.6); RBC Distribution Width SD 43.1 fl (35.1-43.9); Red Blood Count 4.41 M/mm3 (4.2-5.4); White Blood Count 7.7 K/mm3 (4.4-11.0)
[2023-10-17 10:41] LABS: Hemoglobin A1c 5.1 % (3.8-5.6)
[2023-10-17 12:46] LABS: HIV - WCH Non-Reactive (Nonreactive); Hepatitis B Surface Antigen Non-Reactive (Nonreactive); Hepatitis C Antibody Non-Reactive (Nonreactive); Rubella IgG Reactive (Nonreactive); Syphilis Antibodies Non-reactive
[2023-10-19 06:11] LABS: Chlamydia By Nucleic Acid AMP Negative (Negative); Gonococcus By Nucleic Acid AMP Negative (Negative)
[2023-10-19 14:10] LABS: HPV APTIMA, High Risk Negative (Negative)
== END | disposition home or self-care (01) ==
PROVIDERS: Referring Provider Advanced Practice Midwife; Visit Provider Advanced Practice Midwife
DX: O09.522 Supervision of elderly multigravida, second trimester (principal); O99.212 Obesity complicating pregnancy, second trimester; Z12.4 Encounter for screening for malignant neoplasm of cervix; Z3A.00 Weeks of gestation of pregnancy not specified
CPT/HCPCS: 36415; 83036; 85025; 86703; 86762; 86780; 86803; 86850; 86900; 86901; 87086; 87088; 87340; 87491; 87591; 87624; 88175; G0145

== ENCOUNTER → 2024-01-09 | Outpatient (CLI) | payer OTHER, SELFPAY ==
[2024-01-09 13:59] LABS: Absolute Lymphocyte Count 1.46 X10^3/uL (0.83-4.51); Absolute Neutrophil Count 7.1 X10^3/uL (2.0-7.7); Basophil# 0.03 X10^3/uL; Basophil% 0.3 % (0-1); Eosinophil# 0.12 X10^3/uL; Eosinophils% 1.3 % (0-5); Hematocrit 34.7 % (37-47); Hemoglobin 11.6 g/dL (12.0-15.0); Lymphocyte # 1.46 X10^3/ul (0.83-4.51); Lymphocyte % 15.9 % (19-41); Mean Corp Hgb Conc 33.4 g/dL (32-36); Mean Corpuscular Hgb 28.8 pg (27.0-32.0); Mean Corpuscular Volume 86.1 fL (81-99); Mean Platelet Vol. 9.4 fl (6.2-12.0); Monocyte# 0.51 X10^3/uL; Monocyte% 5.5 % (0-10); NRBC Flagged by Analyzer 0 % (0-5); Neutrophil # 7.05 X10^3/uL (2.7-7.7); Neutrophil % 76.7 % (47-70); Platelet Count 165 K/mm3 (150-450); RBC Distribution Width CV 13.8 % (11.6-14.6); RBC Distribution Width SD 43.2 fl (35.1-43.9); Red Blood Count 4.03 M/mm3 (4.2-5.4); White Blood Count 9.2 K/mm3 (4.4-11.0)
[2024-01-09 14:52] LABS: HIV - WCH Non-Reactive (Nonreactive); Syphilis Antibodies Non-reactive
[2024-01-09 14:55] LABS: Glucose Challenge Gest 1H 50g 119 mg/dL (70-140)
== END | disposition home or self-care (01) ==
LOC: PAVLAB 13:29
PROVIDERS: Referring Provider Nurse Practitioner Women's Health; Visit Provider Nurse Practitioner Women's Health
DX: Z34.90 Encounter for supervision of normal pregnancy, unspecified, unspecified trimester (principal); Z13.1 Encounter for screening for diabetes mellitus; Z3A.25 25 weeks gestation of pregnancy
CPT/HCPCS: 36415; 82950; 85025; 86703; 86780

== ENCOUNTER → 2024-03-06 | Outpatient (CLI) | payer OTHER, SELFPAY ==
--- OUTSIDE RECORDS SUMMARY | 2024-03-06 12:57 | XMS RPT_ITS | CCD ---
Author Organization [facility] Care Team Providers Care Trailer Park Manager Name Role Phone NO PRIMARY CARE, Primary Care Unavailable ALBA DIMAS Attending Unavailable RADHA GERMAIN Referring Unavailable Encounters Encounter Date Encounter Type Care Provider Facility Start: 11-07-2023 End: 11-07-2023 ambulatory MD [facility] Start: 08-09-2023 End: 08-09-2023 ambulatory Facility:[facility] Payers Date Payer Category Payer Unknown [id number] 1985 Unknown [id number] Private Health Insurance [id number] Progress note 08-09-2023 Note Date & Type Note Facility 08-09-2023 Note HNO ID: [id number] Author: OZ MANSFIELD APRN.GUM WORKER Service: ? Author Type: Nurse Practitioner Type: Progress Notes Filed: 08/09/2023 14:36 Note Text: Telemedicine Visit - Distance Health Virtual Visit Note I have communicated my name and active licensure. The patient's identity and physical location were verified at the time of this visit. Either the patient or their legal personal banking representative has been informed of the risks and benefits of -- and alternatives to -- treatment through a remote evaluation and consents to proceed with the evaluation remotely. Patient seen on virtual platforms, [employer]. Location of patient: [place] History of Presenting Illness: Erica Olmos 38 year old that complains of possible sinus infection. Positive for: nasal congestion, runny nose, left cheek pain, pnd and cough in the morning Negative for: fever, chills, fatigue, myalgias/arthralgias, headache, otalgia, ear pressure, sneezing, sore throat, change in taste/smell, eye drainage/redness, wheezing, chest tightness, chest congestion, pleuritic chest pain, cardiac chest pain, sob/dyspnea, abdominal pain, nausea, vomiting, diarrhea, and rashes. It is 2 weeks in duration and worsen in the last 7-8 days OTC meds/remedies that patient has tried: nasal lavage. Tobacco use: No Took Covid test: no Video Exam (Examination performed via Video enabled technology) General appearance: Alert, oriented, pleasant, in NAD :Yes Ill appearing :No Lethargic appearing :No Eyes: Sclera clear :Yes Conjunctiva without erythema :Yes Ears: Tragus / outer ear tenderness by self palpation :No Oropharynx: + pnd. No erythema or edema Frontal sinus tenderness by self palpation;No Maxillary sinus tenderness by self palpation :Yes left side Ethmoid sinus tenderness by self palpation: Yes left side Tender cervical adenopathy by self palpation :No Respiratory distress :No Coughing noted :No Audible wheezing noted :No ASSESSMENT/PLAN Bacterial sinusitis (primary encounter diagnosis) - Supportive measures: rest, warm fluids, saline nasal irrigation, humidification, hot showers, warm facial packs/compresses to help open respiratory and sinus passages - Sleep with head elevated due to natr-[id number]-tdva increases cough - Continue nasal lavage - Nasal saline solution is an over the counter product used to restore moisture to the nose, clean and decongest the passages. Use 2 sprays in each nostril 3-4 times a day; preferrably in the AM and at bedtime and 1-2 times during the day. Then blow out the mucous. You may purchase any brand of your preference.or Neti Pot daily - Mucinex 1200mg every 12 hours as needed for 7 days - Wash your hands frequently to prevent spreading infection. - Warm salty gargles: 1 liter of water 2 table spoons of salt every 4 hours while awake - Drink plenty of water/fluids (unless your doctor has told you otherwise) - Avoid tobacco smoke and other environmental irritants - If you were prescribed an antibiotic finish it all even if you start to feel better - The following approved medication requests have been transmitted electronically. Requested Prescriptions Signed Prescriptions Disp Refills amoxicillin-clavulanate potassium (AUGMENTIN) 875-125 mg per tablet 10 tablet 0 Sig: Take 1 tablet by mouth two times a day for 5 days. ipratropium bromide (ATROVENT) 42 mcg (0.06 %) nasal spray 6.3 mL 0 Sig: Use 1 [place]on in each nostril three times a day for 14 days. -http://[email or web address]/patient-re [email or web address] This link shares information about when antibiotics may help and when they may not. - Follow up with PCP or Urgent Care if symptoms persist, worsen, or any other concerns arises despite today's treatment and recommendation in 1 week - Red flags discussed for need for in person care - All questions answered Oz Mansfield APRN.LAMIN [facility] Summary Purpose Family History No Family History Records FoundNo Family History Records Found Advance Directives No Advanced Directives Records FoundNo Advanced Directives Records Found Additional Source Comments INFORMATION SOURCE (unrecogn ized section and content) DATE CREATED AUTHOR 08/11/2023 [facility] DATE CREATED AUTHOR AUTHOR'S ORGANIZ ATION 11/08/2023 [facility] FOR RECORDS PERTAINING TO PATIENTS WHO ARE OR HAVE BEEN ENROLLED IN A CHEMICAL DEPENDENCY/SUBSTANCEABUSE PROGRAM, SOME INFORMATION MAY BE OMITTED. This clinical summary was aggregated from multiple sources. Caution should be exercised in using it in the provision of clinical care. This summary normalizes information from multiple sources, and as a consequence, information in this document may materially change the coding, format and clinical context of patient data. In addition, data may be omitted in some cases. CLINICAL DECISIONS SHOULD BE BASED ON THE PRIMARY CLINICAL RECORDS. [facility] [employer] [facility]. provides no warranty or guarantee of the accuracy or completeness of information in this document.
== END | disposition home or self-care (01) ==
LOC: LABSPEC 11:59
PROVIDERS: Referring Provider Nurse Practitioner Women's Health; Visit Provider Nurse Practitioner Women's Health
DX: Z34.93 Encounter for supervision of normal pregnancy, unspecified, third trimester (principal)
CPT/HCPCS: 87081

== ENCOUNTER → 2024-03-11 | Outpatient (CLI) | payer OTHER, SELFPAY ==
--- NOTE | 2024-03-11 11:30 | US_ITS ---
STUDY: SECOND AND THIRD TRIMESTER OBSTETRICAL ULTRASOUND - LIMITED REASON FOR EXAM: Female, 38 years old growth LMP: June 24, 2023. PRIOR ULTRASOUND: None. TECHNIQUE: Transabdominal TECHNICAL QUALITY: Adequate. FINDINGS: There is a single intrauterine fetus. The fetus is in a cephalic presentation. There is demonstrated cardiac activity with a heart rate of 150 bpm. There is a normal amniotic fluid volume. The largest amniotic fluid pocket measures 4 cm. The amniotic fluid index (RAJINDER) is 9.3 cm. The placenta is anterior in location and is not low lying. There are Grade 1 placental changes. BIOMETRY: BPD: 9.06 cm: 36 weeks, 5 days: 51% HC: 33.35 cm: 38 weeks, 1 days: 45% AC: 36.08 cm: 40 weeks, 0 days: 99% FL: 7.59 cm: 38 weeks, 6 days: 84% Age by LMP: 37 weeks, 2 days. LEXUS by LMP: March 30, 2024. age by current US: 38 weeks, 2 days. LEXUS by current US: March 23, 2024. Estimated weight: 3720 grams, +/- 558 grams, 94 percentile. US/OB Limited With Biometrics IMPRESSION: Single live uterine gestation with a mean gestational age of 38 weeks and 2 days. Electronically Signed: Deni Chun MD at 13:04 EDT ,
--- OUTSIDE RECORDS SUMMARY | 2024-03-11 13:31 | XMS RPT_ITS | CCD ---
Author Organization [place] [facility] Care Team Providers Care Allocations Clerk Name Role Phone NO PRIMARY CARE, Primary Care Unavailable ALBA DIMAS Attending Unavailable RADHA GERMAIN Referring Unavailable Encounters Encounter Date Encounter Type Care Provider Facility Start: 11-07-2023 End: 11-07-2023 ambulatory MD [facility] Start: 08-09-2023 End: 08-09-2023 ambulatory Facility:[facility] Payers Date Payer Category Payer Unknown [id number] 1985 Unknown [id number] Private Health Insurance [id number] Progress note 08-09-2023 Note Date & Type Note Facility 08-09-2023 Note HNO ID: [id number] Author: OZ MANSFIELD APRN.CHIEF SECURITY OFFICER Service: ? Author Type: Nurse Practitioner Type: Progress Notes Filed: 08/09/2023 14:36 Note Text: Telemedicine Visit - Distance Health Virtual Visit Note I have communicated my name and active licensure. The patient's identity and physical location were verified at the time of this visit. Either the patient or their legal patient representative has been informed of the risks and benefits of -- and alternatives to -- treatment through a remote evaluation and consents to proceed with the evaluation remotely. Patient seen on virtual platforms, [employer]. Location of patient: [place] History of Presenting Illness: Erica Olmos 38 [...] - Sleep with head elevated due to [id number] increases cough - Continue nasal lavage - [...] spray 6.3 mL 0 Sig: Use 1 [place] in each nostril three times a day [...] - All questions answered Oz Mansfield APRN.LAMIN [facility] Summary Purpose Family History No Family History Records FoundNo Family History Records Found Advance Directives No Advanced Directives Records FoundNo Advanced Directives Records Found Additional Source Comments INFORMATION SOURCE (unrecogn ized section and content) DATE CREATED AUTHOR 08/11/2023 [facility] DATE CREATED AUTHOR AUTHOR'S ORGANIZ ATION 11/08/2023 [facility] FOR RECORDS PERTAINING TO PATIENTS WHO ARE [...] BE BASED ON THE PRIMARY CLINICAL RECORDS. [facility]. provides no warranty or guarantee of the accuracy or completeness of information in this document.
== END | disposition home or self-care (01) ==
PROVIDERS: Referring Provider Nurse Practitioner Women's Health; Visit Provider Nurse Practitioner Women's Health
DX: O09.522 Supervision of elderly multigravida, second trimester (principal); O99.210 Obesity complicating pregnancy, unspecified trimester; E66.811 Obesity, class 1; Z3A.00 Weeks of gestation of pregnancy not specified
CPT/HCPCS: 76816

== ENCOUNTER → 2024-03-20 | Outpatient (CLI) | payer OTHER, SELFPAY ==
[2024-03-20 15:07] LABS: Glucose Challenge Gest 1H 50g 88 mg/dL (70-140)
== END | disposition home or self-care (01) ==
LOC: BWCLAB 13:09
PROVIDERS: Obstetrics & Gynecology; Referring Provider Obstetrics & Gynecology; Visit Provider Obstetrics & Gynecology
DX: Z13.1 Encounter for screening for diabetes mellitus (principal)
CPT/HCPCS: 36415; 82950

== ENCOUNTER 2024-03-23 15:28 | Inpatient (IN) | payer OTHER, SELFPAY ==
[2024-03-23] VITALS (15 sets, daily range): BP systolic 126–165; BP diastolic 75–93; PULSE 74–90; RESP 16; TEMP 36.4–37; O2SAT 98; BMI 36.7
[2024-03-23 16:31] LABS: Absolute Lymphocyte Count 1.35 X10^3/uL (0.83-4.51); Absolute Neutrophil Count 6.7 X10^3/uL (2.0-7.7); Basophil# 0.03 X10^3/uL; Basophil% 0.3 % (0-1); Eosinophil# 0.05 X10^3/uL; Eosinophils% 0.6 % (0-5); Hematocrit 35.4 % (37-47); Hemoglobin 11.9 g/dL (12.0-15.0); Lymphocyte # 1.35 X10^3/ul (0.83-4.51); Lymphocyte % 15.6 % (19-41); Mean Corp Hgb Conc 33.6 g/dL (32-36); Mean Corpuscular Hgb 29.2 pg (27.0-32.0); Mean Corpuscular Volume 86.8 fL (81-99); Mean Platelet Vol. 10.5 fl (6.2-12.0); Monocyte# 0.53 X10^3/uL; Monocyte% 6.1 % (0-10); NRBC Flagged by Analyzer 0 % (0-5); Neutrophil # 6.65 X10^3/uL (2.7-7.7); Neutrophil % 77.1 % (47-70); Platelet Count 180 K/mm3 (150-450); Red Blood Count 4.08 M/mm3 (4.2-5.4); White Blood Count 8.6 K/mm3 (4.4-11.0)
--- NOTE | 2024-03-23 16:33 | HP.PCM.OB_ITS ---
HPI - General General Date of Admission: 03/23/24 HPI Narrative REMY OLMOS, is a 38 F who presents at 39.0 for IOL for AMA/suspected LGA. no vb/ctx/lof. good fm. gbs negative. Maternal Data Information LEXUS Calculator Estimated Delivery Date Method Current WG Current Estimate 03/30/24 LMP (Certain) 39w 0d PFSH PFSH Medical History History of tetanus, diphtheria, and acellular pertussis booster vaccination (Tdap) No significant past medical history Home Medications ?Medication ?Instructions ?Recorded ?Last Taken ?Type multivitamin no.47-iron fum 27 1 cap PO DAILY 10/13/23 03/22/24 22:00 History mg-folate no.1 1 mg-dha 300 mg 1 cap capsule (PNV-DHA) Allergy/AdvReac Type Severity Reaction Status Date / Time No Known Allergies Allergy Verified 03/23/24 15:32 Family History Grandmother Diabetes Mother Breast cancer Father Cancer Lung Surgical History H/O wisdom tooth extraction History of tonsillectomy Social History adopted: No household members: spouse and children housing: house number of children: 2 current occupational status: employed 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 pets and animals: Yes pets and animals: dog(s) history of recent travel: No sexually active: Yes Smoking Status: Former smoker second hand exposure: Yes alcohol intake: never substance use type: does not use well-balanced diet: daily or most days caffeine: No eating out: rarely or never during the past year weight has: remained stable what type of physical activity do you participate in: none diane/yazidism: None seatbelt use: always do you feel safe at home: Yes additional social history: [employer] History 3 Elective abortions Hx Para 2 Spontaneous abortions Hx # Term Pregnancies 2 Ectopic pregnancies Hx # Pregnancies Multiple births # of living children 2 Past Pregnancies Del. Date Name GA/Weeks Outcome Route Bth Weight Infant Gen Labor Lgth Anesthesia Del Locatn Provider FOB Unknown 05/11/20 Guardado 40 live - full term 8lbs Female [facility] Rogelio 02/28/22 Reji 40 live - full term 8lbs 4oz Male [facility] Ceedavid Laery Fer Delivery Date: Last Updated by: Zainab Hooker CARAMEL CANDY MAKER HELPER, CARAMEL CANDY MAKER HELPER-C 2 degree Delivery Date: 05/11/20 Last Updated by: Brittaney Linda Admitted in active labor Delivery Date: 02/28/22 Last Updated by: Patria Pritchard IOL Visit Details Expected Delivery Route/Plan Labor Preferences- CB/BF classes: declines labor support person: Fer labor intervention preferences: [] pain management options preferred: epidural if requested cut cord/dad catch: cord : yes PP control planned: discussed discussed possible routes of delivery and associated risks: [] special requests: [] Plans Covid status: [] Flu vaccine: employer Tdap vaccine: given Rhogam: NA LARC form signed: yes movement and labor precautions reviewed. Problem list reviewed and updated with the most current plan of care details and appropriate orders placed. Relevant counseling for the gestational age provided. Continue routine care and follow up unless otherwise noted in visit notes/problem list details OB Flowsheet Initial Weight: Not Recorded Date -?-?-?-?-?-?-?-?-?-?-?-?- EGA Weight BP Urine Prot -?-?-?-?-?-?-?-?-?-?-?-?- Glucose FHR FuHt Pres Dilation -?-?-?-?-?-?-?-?-?-?-?-?- Effaced St Visit Note 10/17/23 -?-?-?-?-?-?-?-?-?-?-?-?- 16w 3d 250 lb 4 oz 129/81 -?-?-?-?-?-?-?-?-?-?-?-?- 149 -?-?-?-?-?-?-?-?-?-?-?-?- KW- size a ppropriate with gestational age. NIPT ordered. Declines AFP MFM anatomy scan ordered. 11/24/23 -?-?-?-?-?-?-?-?-?-?-?-?- 21w 6d 252 lb 118/81 Negative -?-?-?-?-?-?-?-?-?-?-?-?- Negative 152 -?-?-?-?-?-?-?-?-?-?-?-?- JV- normal anato my, gender is a surprise. just the varicosities causing some difficulty. pt will see vascular surgery after delivery. 12/19/23 -?-?-?-?-?-?-?-?-?-?-?-?- 25w 3d 253 lb 6 oz 122/71 Nega tive -?-?-?-?-?-?-?-?-?-?-?-?- Negative 143 26 -?-?-?-?-?-?-?-?-?-?-?-?- MH-No Vb, LOF. G ood Fm. Larc. Some dizziness last week with nausea and now improved. 01/09/24 -?-?-?-?-?-?-?-?-?-?-?-?- 28w 3d 259 lb 125/80 Negative -?-?-?-?-?-?-?-?-?-?-?-?- Negative 145 30 -?-?-?-?-?-?-?-?-?-?-?-?- SM- no vb lof go od fm n oregular ctx cbc gct done today tdap 01/25/24 -?-?-?-?-?-?-?-?-?-?-?-?- 30w 5d 256 lb 143/86 124/81 Negative -?-?-?-?-?-?-?-?-?-?-?-?- Negative 140 32 -?-?-?-?-?-?-?-?-?-?-?-?- KW- no vb/lof/ct x. good fm. 02/14/24 -?-?-?-?-?-?-?-?-?-?-?-?- 33w 4d 255 lb 117/77 Negative -?-?-?-?--?-?-?-?-?-?-?-?- Negative 140 34 -?-?-?-?-?-?-?-?-?-?-?-?- SM- no vb lof go od fm no regular ctx 03/06/24 -?-?-?-?-?-?-?-?-?-?-?-?- 36w 4d 258 lb 2 oz 126/82 Nega tive -?-?-?-?-?-?-?-?-?-?-?-?- Negative 140 36 -?-?-?-?-?-?-?-?-?-?-?-?- MH-No Vb, LOF. G ood FM. No CTX. GBS 03/13/24 -?-?-?-?-?-?-?-?-?-?-?-?- 37w 4d 255 lb 6 oz 123/81 Nega tive -?-?-?-?-?-?-?-?-?-?-?-?- Negative 145 37 -?-?-?-?-?-?-?-?-?-?-?-?- JV- pt declines pelvic exam. no complaints. labor precautions discussed. 03/20/24 -?-?-?-?-?-?-?-?-?-?-?-?- 38w 4d 260 lb 121/86 Negative -?-?-?-?-?-?-?-?-?-?-?-?- Negative 140 38 Cephalic 1 -?-?-?-?-?-?-?-?-?-?-?-?- 30 -2 SM- no vb lof good fm n reg ctx discussed recommend IOL due to LGA and AMA NST FHR Rate Baby A Baseline: 140 Variability:: Moderate Accelerations:: 15 x 15 Decelerations:: None NST Reactive:: Yes FHR Category:: Category I ROS Cardiovascular Cardiovascular: Denies abdominal pain, chest pain, diaphoresis or dyspnea Respiratory/Chest Respiratory/Chest: Denies change in mental status, chest congestion, chest tightness, cough, shortness of breath at rest, shortness of breath with exertion, breast mass, breast pain, breast skin changes, breast swelling, change in breast shape or nipple discharge Genitourinary Genitourinary: Reports change in urinary stream Musculoskeletal Musculoskeletal: Reports none Integumentary Integumentary: Reports none Neurologic Neurologic: Reports none Psychiatric Psychiatric: Reports none Endocrine Endocrinology: Reports none Hematologic/Lymphatic Hematologic/Lymphatic: Reports none Allergic/Immunologic Allergic/Immunologic: Reports none Vital Signs Vital Signs Vital Signs: 03/23/24 15:52 03/23/24 15:52 03/23/24 15:52 Temperature Temperature Source Pulse Rate 90 Respiratory Rate Blood Pressure 165/92 H BP Systolic 165 BP Diastolic 92 Pulse Ox 98 03/23/24 15:54 03/23/24 15:54 03/23/24 15:56 Temperature Temperature Source Temporal Pulse Rate 87 Respiratory Rate Blood Pressure 146/87 H BP Systolic 146 BP Diastolic 87 Pulse Ox 03/23/24 15:56 03/23/24 15:56 Temperature 98.6 F Temperature Source Pulse Rate Respiratory Rate 16 Blood Pressure BP Systolic BP Diastolic Pulse Ox Physical Exam Const alert, oriented x3 and no apparent distress General Appearance: cooperative, comfortable and well kempt Orientation / Consciousness: awake and oriented to person Exam Limitations: no limitations HEENT normocephalic Neck full ROM Chest inspection of chest normal Resp normal respiratory effort, normal air movement and no retractions Effort and Inspection: able to speak in complete sentences and symmetric chest movement Cardio regular rate Peripheral Pulses: pulses 2+ throughout GI normal to inspection, nondistended, normoactive bowel sounds Inspection: gravid no CVA tenderness and appearance of the vagina normal External Female Exam: normal appearance of the urethra; Negative for external lesion OB / External & Speculum: external exam normal Manual OB Exam: estimated gestational size appropriate and presentation cephalic Uterus Palpation: Negative for uterus tender Extremity normal to inspection Skin no rashes or lesions noted Neuro deep tendon reflexes 2+ bilaterally and gait normal Motor Exam: strength 5/5 throughout and clonus absent Psych Activity / Motor Behavior: appropriate eye contact Speech: normal speech Labs Labs Labs: Blood Type A POSITIVE Antibody Screen NEGATIVE Hct 35.4 % (37-47) L Hgb 11.9 g/dL (12.0-15.0) L Pap Smear Negative Obstetrics Ultrasound Syphilis Total Ab Non-reactive Rubella IgG Antibody Reactive (Nonreactive) Hep Bs Antigen Non-Reactive (Nonreactive) Hepatitis C Antibody Non-Reactive (Nonreactive) Chlamydia DNA (PHOEBE) Negative (Negative) N.gonorrhoeae DNA (PHOEBE) Negative (Negative) HIV 1&2 Antibody Non-Reactive (Nonreactive) Glucose 1 Hr 50 gm 88 mg/dL (70-140) Gest Glucose Tolerance MG/DL Rhogam given: No Assessment & Plan (1) LGA (large for gestational age) fetus: COMMENT: 39 week IOL should be considered. EFW at 40 weeks will be close to 10 pounds based on ultrasound at 37 weeks. (2) AMA (advanced maternal age) multigravida 35+: QUALIFIERS: Trimester: second trimester Qualified Code(s): O09.522 - Supervision of elderly multigravida, second trimester COMMENT: low risk NIPT, growth US 36 weeks delivery by 40 (3) Obesity (BMI 30.0-34.9): COMMENT: nl hga1c, encouraged healthy weight gain (4) Supervision of normal in second trimester: QUALIFIERS: Normal : other normal Qualified Code(s): Z34.82 - Encounter for supervision of other normal , second trimester COMMENT: PRR, , LEXUS 03/30/24, surprise PC Reji Guardado, Fer (5) : QUALIFIERS: Weeks of gestation: 38 weeks Qualified Code(s): Z3A.38 - 38 weeks gestation of COMMENT: Neg GBS. NIPT low risk, nl anatomy, consistent LEXUS and CL PLAN: Plan Patient presents IOL, plan management for with escobedo bulb/pitocin/AROM. Pain management: plans epidural. GBS positive. Management of any complications: none I have reviewed the [facility] and made any clinically relevant updates. Dr. Zapata updated on admission, poc and exam.
[2024-03-23 17:18] LABS: Syphilis Antibodies Non-reactive
[2024-03-23] MEDS: Oxytocin 15 Units/NS 250ml 15 UNITS/250 ML IV.SOLN 2 UNITS IV (17:25)
[2024-03-23] MEDS: Lactated Ringers 1,000 ML 50 ML IV (17:27)
[2024-03-23 17:40] LABS: AST(SGOT) 11 U/L (15-37); Alanine Aminotransfer ALT/SGPT 18 U/L (13-56); Creatinine, Serum 0.67 mg/dL (0.55-1.02); EST Glomerular Filtration Rate 106 mL/min (>60); Est Glom Filt Rate - Afr Amer 128 mL/min (>60); Estimated Creatinine Clearance 158.87 ml/min; Uric Acid 4.3 mg/dL (2.6-6.0)
[2024-03-23 19:38] LABS: Protein, Urine (Random) 13.2 mg/dL (<11.9); Protein:Creat Ratio 168 mg/g CRE (0-200)
[2024-03-24] VITALS (36 sets, daily range): BP systolic 105–185; BP diastolic 55–91; PULSE 71–113; RESP 16–18; TEMP 36.4–37.1; O2SAT 75–99
[2024-03-24] MEDS: Lactated Ringers 1,000 ML 999 ML IV (01:10)
[2024-03-24] MEDS: fentaNYL-bupivacaine (epidural) 100 ML BAG EPIDURAL (02:10)
--- NOTE | 2024-03-24 03:27 | EX.PCM.OBVAG ---
Assessment & Plan (1) (spontaneous vaginal delivery): COMMENT: LC girl. IOL:AMA (2) AMA (advanced maternal age) multigravida 35+: QUALIFIERS: Trimester: second trimester Qualified Code(s): O09.522 - Supervision of elderly multigravida, second trimester COMMENT: low risk NIPT, growth US 36 weeks delivery by 40 (3) Obesity (BMI 30.0-34.9): COMMENT: nl hga1c, encouraged healthy weight gain (4) LGA (large for gestational age) fetus: COMMENT: 39 week IOL should be considered. EFW at 40 weeks will be close to 10 pounds based on ultrasound at 37 weeks. Maternal Data Information LEXUS Calculator Estimated Delivery Date Method Current WG Current Estimate 03/30/24 LMP (Certain) 39w 1d Final LEXUS: 03/30/24 Final LEXUS Source: US >20 weeks Gestational age: 39.1 Vaginal Delivery Maternal Presentation Maternal Presentation: Medically Indicated Induction Maternal Presentation: at 39 weeks for IOL for AMA/LGA. s/p [place] bulb, Pitocin and AROM to achieve full dilation. Type of Induction: Pitocin and [place] Bulb Medical Reason for Induction: Maternal Medical Condition: list: Vaginal Delivery Information Procedure Performed: Spontaneous Vaginal Delivery Date of Procedure: 03/24/24 Pre-Procedure Diagnosis: see problem list Post-Procedure Diagnosis: Type of anesthesia: Epidural Estimated Blood Loss: 200 Time of Delivery: 03:09 Findings Description of procedure: Patient began pushing and delivered the head in the AMAURI presentation. The head was delivered atraumatically and a loose nuchal cord ?1 was identified and easily reduced over the 's head. The anterior and posterior shoulders delivered without complication followed by the rest of the infant and the infant was placed on the maternal abdomen. Delayed cord clamping was employed for approximately 60 seconds. Cord was clamped and cut and gentle traction was applied to the cord and the placenta delivered spontaneously immediately following it was noted to be intact with three-vessel cord. The perineum and vagina were inspected and noted to have 1st degree laceration repaired with 3-0 Vicryl in usual fashion. EBL was 200cc. Patient and tolerated delivery well. entered recovery phase bonding skin to skin. Presentation: Vertex Amniotic Membrane Rupture Type: Artificial Amniotic Fluid Description: Clear Placental Delivery Description: Spontaneous Placenta Disposition: [facility] Cord Vessel Description: 3 Vessels Cord Entanglement: Around neck x 1, loose Nuchal Cord Compression: Without compression A Gender: Female (1 minute): 8 (5 minute): 9 Delayed Cord Clamping: Yes Post Vaginal Deli Medications given after delivery: IV Pitocin Episiotomy Description: None Laceration: 1st degree Procedures Urinary/Genital [id number]: [id number] Vaginal Delivery [facility]
--- NOTE | 2024-03-24 03:30 | DCINST_ITS ---
Discharge Instructions Diet Discharge Diet: No restrictions Activity Discharge Activity: May Not Drive and May Shower May resume sexual activity in: 6 weeks Weight Bearing Status: Full weight bearing Dressing / Incision Call your doctor if your incision/area has: Sudden Increased Bleeding, Increased Pain/ Swelling and Foul Smelling Discharge Call your doctor if you observe: Fever of 101 or Higher, Numbness or Tingling, Change in Color, Inability to urinate, Inability to have a bowel movement, Using more than 1 pad per hour, Shortness of breath, Dizziness, Fainting spells, Chest pain, Calf discomfort and Uncontrolled pain Follow Up Care Please Follow Up With: Cee Leary CNM When: 6 weeks , please call office to make an appointment. Congratulations on the of your baby! Test Results: Test results from this visit will be discussed in further detail at your follow- up appointment, if applicable. Discharge Plan Admission Admit Date/Time: 03/23/24 15:28 Attending Provider: Cee Leary Primary Care Provider: Care Physician,No Primary Discharge Orders/Prescriptions Prescriptions: No Action PNV-DHA 27 mg iron-1 mg -300 mg capsule 1 cap PO DAILY Referrals / Follow Up: Care Physician,No Primary [Primary Care Provider] -
[2024-03-24] MEDS: Oxytocin 15 Units/NS 250ml 15 UNITS/250 ML IV.SOLN 83 UNITS IV (03:58)
[2024-03-24] MEDS: 0.9% Saline Lock 10 ML Syringe IV (07:55)
[2024-03-25 03:20] VITALS: BP 112/66; PULSE 80; RESP 16; TEMP 36.2; O2SAT 97
[2024-03-25 03:22] VITALS: BP 112/66; PULSE 86; O2SAT 97
[2024-03-25 08:30] VITALS: BP 120/79; PULSE 80; RESP 17; TEMP 36.1
[2024-03-25 08:31] VITALS: BP 120/79; PULSE 80
--- NOTE | 2024-03-25 08:51 | PN.OBGYN_ITS ---
Subjective Subjective Patient doing well without complaints. Tolerating PO. Ambulating and voiding without difficulty. Feeding well. Denies chest pain, shortness of breath, calf pain/swelling, fevers, chills, lightheadedness. Objective Data Objective Data Vital Signs: Vital Signs Temp Pulse Resp BP Pulse Ox O2 Del Method 97.2 F L 80 16 120/79 97 Room Air 03/25/24 03:20 03/25/24 08:31 03/25/24 03:20 03/25/24 08:31 03/25/24 03:22 03/25/24 03:20 Oxygen Delivery Method Room Air Weight: 255 lb 15.307 oz Body Mass Index (BMI) 36.7 Intake & Output: Intake and Output for Last 24 Hours 03/23/24 03/24/24 03/25/24 23:59 23:59 23:59 Intake Total 17.13 / 17. 1967.87 / 1966. Output Total 500 / 500 Balance 17.13 / 17.13 1467.87 / 1467.87 Lab / Micro Data 03/23/24 16:10 03/23/24 16:10 ROS Constitutional Constitutional: Reports systems reviewed and no addt'l complaints, except as documented; Denies anorexia or headache(s) Cardiovascular Cardiovascular: Reports systems reviewed and no addt'l complaints, except as documented; Denies dizziness, dyspnea, nausea or tachypnea Respiratory/Chest Respiratory/Chest: Reports systems reviewed and no addt'l complaints, except as documented; Denies cough, dyspnea, shortness of breath at rest or tachypnea Gastrointestinal Gastrointestinal: Reports systems reviewed and no addt'l complaints, except as documented; Denies abdominal pain, constipation or nausea Genitourinary Genitourinary: Reports systems reviewed and no addt'l complaints, except as documented; Denies burning urination, difficulty urinating, dysuria, urinary frequency or urinary incontinence Musculoskeletal Musculoskeletal: Reports systems reviewed and no addt'l complaints, except as documented Integumentary Integumentary: Reports systems reviewed and no addt'l complaints, except as documented Neurologic Neurologic: Reports systems reviewed and no addt'l complaints, except as documented; Denies abnormal speech, dizziness or headache(s) Psychiatric Psychiatric: Reports systems reviewed and no addt'l complaints, except as documented Endocrine Endocrinology: Reports systems reviewed and no addt'l complaints, except as documented Hematologic/Lymphatic Hematologic/Lymphatic: Reports systems reviewed and no addt'l complaints, except as documented Physical Exam Const alert, oriented x3 and no apparent distress Neck full ROM Resp normal respiratory effort, normal air movement and no retractions Effort and Inspection: able to speak in complete sentences and symmetric chest movement GI soft to palpation Bladder / Kidney Exam: bladder normal to palpation Uterus Palpation: uterus fundus firm Extremity normal to inspection and full ROM Psych mental status grossly normal, thought process normal and cooperative Assessment & Plan (1) (spontaneous vaginal delivery): COMMENT: LC girl. IOL:AMA PLAN: s/p PPD # 1 1. routine post delivery care 2. breast feeding- support given 3. rh positive 4. rubella immune 5. Discharge home (2) LGA (large for gestational age) fetus: COMMENT: 39 week IOL should be considered. EFW at 40 weeks will be close to 10 pounds based on ultrasound at 37 weeks. (3) AMA (advanced maternal age) multigravida 35+: QUALIFIERS: Trimester: second trimester Qualified Code(s): O 09.522 - Supervision of elderly multigravida, second trimester COMMENT: low risk NIPT, growth US 36 weeks delivery by 40 (4) Obesity (BMI 30.0-34.9): COMMENT: nl hga1c, encouraged healthy weight gain (5) Supervision of normal in second trimester: QUALIFIERS: Normal : other normal Q ualified Code(s): Z34.82 - Encounter for supervision of other normal , second trimester COMMENT: PRR, , LEXUS 03/30/24, surprise PC Reji Guardado, Fer (6) : QUALIFIERS: Weeks of gestation: 38 weeks Qualified Code(s): Z 3A.38 - 38 weeks gestation of COMMENT: Neg GBS. NIPT low risk, nl anatomy, consistent LEXUS and CL Charges/Coding Multi Select Codes Urinary/Genital Urinary/Genital CPT Codes: No Charge
[2024-03-25 14:23] VITALS: BP 139/78; PULSE 88; RESP 16; TEMP 36.2
[2024-03-25 14:24] VITALS: BP 139/78; PULSE 88
== END 2024-03-25 15:00 | disposition home or self-care (01) | DRG 807 ==
PROVIDERS: Admitting Provider Registered Nurse; Referring Provider Registered Nurse; Visit Provider Registered Nurse
DX: O36.63X0 Maternal care for excessive fetal growth, third trimester, not applicable or unspecified (principal); Z37.0 Single live birth; O69.81X0 Labor and delivery complicated by cord around neck, without compression, not applicable or unspecified; O99.214 Obesity complicating childbirth; O70.0 First degree perineal laceration during delivery; Z3A.39 39 weeks gestation of pregnancy; Z87.891 Personal history of nicotine dependence
CPT/HCPCS: 59025; 59050; 82565; 82570; 84156; 84450; 84460; 84550; 85025; 86780; 86850; 86900; 86901; 99221; J7120; A4216; G0378